=== PATIENT | male | born 1985 | race Caucasian/White ===

== ENCOUNTER 2017-07-18 09:26 | Day surgery (SDC) | payer OTHER, SELFPAY ==
[2017-07-18 09:50] VITALS: BP 125/75; PULSE 85; RESP 18; TEMP 37.2; O2SAT 99; BMI 25.1
--- NOTE | 2017-07-18 11:00 | PCM.DC.GS ---
Discharge Diet: No Restrictions Discharge Activity: May Drive May shower in (days): 1 Lifting Restrictions: 10 pounds Call your doctor if your incision/area has: Continuous Slow Oozing, Sudden Increased Bleeding, Increased Pain/ Swelling, Increased Redness, Foul Smelling Discharge Call your doctor if you observe: Fever of 101 or Higher Suture Line Care: Avoid Pulling/Pushing, Avoid Pinching/Bending Additional Dressing/Incision Instructions:: Change or remove dressing in 2 days. Allergies/Adverse Reactions: Allergies No Known Allergies Allergy (Unverified 07/17/17 13:09) Medications to take at Discharge NK [NK] 07/10/17 Primary Care Physician: Jim Freeman [Primary Care Provider] - Please Follow Up With: Andrea Sheets MD - [phone] When: Call to make an appointment to be seen on Friday.
[2017-07-18] MEDS: Bupivacaine Mpf 0.5% 30 ML VIAL (11:19)
--- NOTE | 2017-07-18 11:25 | CYST_PTH ---
PATIENT: NUHA SEGUNDO LOC: [facility] [place] U#:[id number] AGE/SX: 31/M ROOM: RE07/18/[address]: Dr. Andrea Sheets MD : [id number] BED: DIS: 07/18/2017 SPEC #: [id number] RECD: 07/18/17 12:14 STATUS: MARIA ISABEL LEONARD #: [id number] STEVEN: 07/18/17 11:[address]: Andrea Sheets DEPT: SURGICAL PATHOLOGY RECD BY: Melvin Kong ENTERED: 07/18/17 12:15 SP TYPE: Cyst OTHR DR: Dr. Jim Freeman, DO Tissues: CYST Procedures: Surgery Specimen Level III HEADER OPERATION: Excision, cyst, cheek PRE-OP DIAGNOSIS: Sebaceous cyst left cheek TISSUE SUBMITTED: Cyst left cheek MICROSCOPIC DIAGNOSIS Cyst left cheek, excision: Trichilemmal cyst with focal calcification. SJ:torrie 3/19/18 MICROSCOPIC DESCRIPTION Slides are reviewed. GROSS DESCRIPTION Received in fixative is one container labeled with the patient's name and designated cyst, left cheek. The specimen consists of a diaz-white nodule measuring 1.5 x 1 x 1 cm. A piece of skin is noted at one edge measuring 1.5 x 0.2 cm. The cyst is filled with diaz-white cheesy material. Provider Network Manager sections and entire piece of skin is submitted in one cassette. / SJ:rg 07/18/17 TC:5 [facility]: [id number]
--- NOTE | 2017-07-18 11:39 | PCM.OPRPT ---
Problem List (1) Sebaceous cyst Status: Acute Report of Operation Date of Procedure: 07/18/17 Pre-Operative Diagnosis: Left cheek sebaceous cyst Post-Operative Diagnosis: Same Surgery/Procedure Performed:: Excision left cheek sebaceous cyst Description of Surgical Findings:: Timeout and informed consent was obtained. 31-year-old gentleman was taken to the operative placement table underwent monitored anesthesia care. 10 cc of 1% lidocaine mixed 50-50 with 0.5% Marcaine was used as local anesthetic. The left cheek was sterilely prepped and draped. Local was instilled. A slight ellipse of skin measuring approximately 2 x 0.4 cm were used to completely excise the skin pore and dissected down to the cystic lesion. The suspected sebaceous cyst was encountered it was sharply completely circumferentially dissected free. It was excised intact. The subdermal tissues were approximated with interrupted 4-0 chromic and interrupted 5-0 chromic. Skin edges were approximated with simple sutures of 6-0 nylon. Telfa OpSite dressing applied. Sponge, needle, gauze count was noted to be correct. Specimens sebaceous cyst with fragment of skin. Drains none. Blood loss minimal. No complications Andrea Sheets M.D., F.A.C.S. Type of Anesthesia:: Local MAC Anesthesiologist: Vernon Giordano
[2017-07-18 11:48] VITALS: BP 111/57; PULSE 74; RESP 16; TEMP 36.8; O2SAT 97
[2017-07-18 11:50] VITALS: BP 102/59; PULSE 76; RESP 18; O2SAT 99
[2017-07-18 11:55] VITALS: BP 102/72; PULSE 71; RESP 18; O2SAT 99
[2017-07-18 12:02] VITALS: BP 112/74; PULSE 67; RESP 18; TEMP 36.6; O2SAT 98
== END 2017-07-18 13:56 | disposition home or self-care (01) ==
LOC: SDC 09:28 → AC 09:29
PROVIDERS: Family Provider Family Medicine; PCP Family Medicine; Visit Provider Surgery
PROC: (CPT 11442; principal; 2017-07-18 11:15)
DX: L72.12 Trichodermal cyst (principal); F17.200 Nicotine dependence, unspecified, uncomplicated
CPT/HCPCS: 00300; 11442; 12051; 88304; J7120